=== PATIENT | female | born 1955 | race Caucasian/White ===

== ENCOUNTER → 2016-11-21 | Outpatient (CLI) | payer OTHER ==
[~2016-11-21] MED LIST: ACETAMINOPHEN650 M3 PO; CRESTOR10 MG DOB; DIOVAN160 MG DOB; EFFEXOR75 M2 PO; FOLIC ACID1 MG; LEVEMIR FL100 UNIT/1 SUBQ; LORTAB 5-325 M1 EACH PO; METFORMIN HCL500 M2 PO; METHOTREXATE2.5 MG; NESINA25 MG PO; NORCO1 TAB 10/3 PO; NOVOLOG100 U/M2 SUBQ; PREDNISONE PO; PROAIR HFA8.5 GM IH; PULMICORT180 MCG/A1 IH; SEREVENT D50 MCG/DIS PO; ST. JOSEPH ASPI81 M2 PO; TRILIPIX135 MG PO; ZITHROMAX PO; [UNRECOGNIZED DRUG - OTHER] PO
[2016-11-21 09:16] LABS: BASOPHIL% 0.5 % (0-2.5); EOSINOPHIL% 1.2 % (0.0-7.0); HEMATOCRIT 39.1 % (35.0-45.0); HEMOGLOBIN 12.9 gm/dL (12.0-16.0); LYMPHOCYTE# 2.8 X10e3 (1.0-3.5); LYMPHOCYTE% 39.6 % (17.0-45.0); MEAN CELL VOLUME 90.4 FL (83-96); MEAN CORPUSCULAR HEMOGLOBIN 29.8 PG (28-34); MEAN CORPUSCULAR HGB CONC 32.9 g/dL (30-36); MEAN PLATELET VOLUME 8.4 FL (6.5-11.5); MONOCYTE# 0.4 X10e3 (0-1.0); MONOCYTE% 5.5 % (3.0-12.0); NEUTROPHIL# 3.7 X10e3 (1.5-7.1); NEUTROPHIL% 53.2 % (40-75); PLATELET COUNT 275 X10e3 (140-420); RED BLOOD COUNT 4.32 X10e (3.90-5.30); RED CELL DISTRIBUTION WIDTH 14.5 % (11.0-15.5)
[2016-11-21 09:17] LABS: EOSINOPHIL# 0.1 X10e3 (0-0.7)
[2016-11-21 09:21] LABS: DIFF IND NO
[2016-11-21 10:09] LABS: ALBUMIN SERUM 4.1 g/dL (3.5-5.0); BILIRUBIN,TOTAL 0.8 mg/dL (0.2-2.0); BUN/CREATININE RATIO 33.33; CALCIUM SERUM 9.5 mg/dL (8.4-10.2); CREATININE SERUM 0.6 mg/dL (0.6-1.4); GLOM FILT RATE Estimated 98.4 mL/min (>60); POTASSIUM 4.6 mmol/L (3.5-5.1); PROTEIN TOTAL SERUM 6.9 g/dL (6.0-8.3)
== END | disposition home or self-care (01) ==
LOC: CLAB 08:35
PROVIDERS: Internal Medicine Rheumatology
DX: Z51.81 Encounter for therapeutic drug level monitoring (principal); Z79.899 Other long term (current) drug therapy
CPT/HCPCS: 36415; 80053; 85025; 85652; 86140